=== PATIENT | female | born 1990 | race African-American/Black ===

== ENCOUNTER 2023-10-04 23:45 | Emergency (ER) | payer MEDICAID, OTHER ==
[~2023-10-04] VITALS: Ht 172.7 cm; Wt 72.7 kg
[2023-10-05] MEDS ORDERED: METOCLOPRAMIDE HCL 5MG/ml INJ 2ml VIAL IV ONE (00:30)
[2023-10-05] MEDS ORDERED: SODIUM CHLORIDE 0.9% 1,000 ML IV ONE (00:30)
[2023-10-05] MEDS ORDERED: MORPHINE SULFATE INJ 2 MG/ml SYRG IV ONE (00:30)
[2023-10-05 00:55] LABS: Chloride 105 mmol/L (98-107); Potassium 3.5 mmol/L (3.5-5.1); Sodium 137 mmol/L (136-145)
[2023-10-05 00:56] LABS: Anion Gap 8 (5-15); Basophils # (auto) 0 10 ^3/uL (0-0.2); Basophils % (auto) 0.2 % (0.0-2.0); Carbon Dioxide 24 mmol/L (20-30); Eosinophils # (auto) 0 10 ^3/uL (0-0.8); Eosinophils % (auto) 0.2 % (0.0-7.0); Hematocrit 37.9 % (36.0-46.0); Hemoglobin 12.5 g/dL (12.2-16.2); Lymphocytes # (auto) 1.1 10 ^3/uL (0.4-5.4); Lymphocytes % (auto) 9.3 % (10.0-50.0); Mean Corpuscular Hemoglobin 29.4 pg (28.0-32.0); Mean Corpuscular Hgb Conc. 32.9 g/dL (32.0-36.0); Mean Corpuscular Volume 89.5 fL (80.0-100.0); Monocytes # (auto) 0.4 10 ^3/uL (0-1.3); Monocytes % (auto) 3.7 % (0.0-12.0); Neutrophils # (auto) 10.1 10 ^3/uL (1.6-8.6); Neutrophils % (auto) 86.6 % (37.0-80.0); Red Blood Cells 4.24 10^6/uL (4.0-5.20); Red Cell Distribution Width 13.4 % (11.8-14.3); White Blood Cell 11.6 10^3/uL (4.4-10.8)
[2023-10-05 01:00] LABS: INR 1.02 (0.9-1.15); Partial Thromboplastin Time 26.3 SEC (24.5-34.5); Prothrombin Time 10.7 sec (9.3-11.8)
[2023-10-05 01:01] LABS: Glucose 144 mg/dL (74-106)
[2023-10-05 01:02] LABS: BUN/Creatinine Ratio 11.8 (10.0-20.0); Blood Urea Nitrogen 9 mg/dL (9-23)
[2023-10-05] MEDS ORDERED: LACT10SO3 PO (02:53)
[2023-10-05] MEDS ORDERED: ACET-6 PO (02:53)
[2023-10-05 03:45] VITALS: O2SAT 97
[2023-10-05 04:08] VITALS: BP 112/54; PULSE 85; RESP 18
== END 2023-10-05 04:49 | disposition home or self-care (01) ==
LOC: EDBD 23:45 → ER 23:45
DX: K59.00 Constipation, unspecified (principal); R11.2 Nausea with vomiting, unspecified; R07.89 Other chest pain; Z79.899 Other long term (current) drug therapy
CPT/HCPCS: 36415; 71045; 74176; 80048; 83880; 84484; 85025; 85610; 85730; 96361; 96374; 96375; 99285; J2270; J2765; J7030